=== PATIENT | male | born 1975 | race Caucasian/White ===

== ENCOUNTER 2020-08-09 02:29 | Emergency (ER) | payer OTHER ==
[~2020-08-09] VITALS: Ht 188 cm; Wt 94.3 kg
[2020-08-09] MEDS ORDERED: IMITREX100 MG PO (03:53)
[2020-08-09 04:12] VITALS: BP 125/87
== END 2020-08-09 04:17 | disposition home or self-care (01) ==
LOC: ER 02:29
DX: G43.909 Migraine, unspecified, not intractable, without status migrainosus (principal)

== ENCOUNTER → 2020-11-19 | Emergency (ER) | payer OTHER ==
[~2020-11-19] VITALS: Ht 185.4 cm; Wt 95.3 kg
[~2020-11-19] MED LIST: IMITREX100 MG PO
[2020-11-19 15:33] LABS: ABSOLUTE NEUTROPHILS 4.5 thou/uL (1.4-8.2); BASOPHILS 0.7 % (0.0-2.0); EOSINOPHILS 4.2 % (0.0-3.0); HEMATOCRIT 46.8 % (42.0-52.0); HEMOGLOBIN 15.6 gm/dL (14.0-18.0); LYMPHOCYTES 26.9 % (24.0-44.0); MCHC 33.4 g/dL (28.0-37.0); MCV 89.8 fL (80.0-100.0); MONOCYTES 9.6 % (1.0-8.0); PLATELET COUNT 288 thou/uL (150-400); POLYS 58.6 % (36.0-66.0); RBC 5.21 mil/uL (4.50-6.00); RDW 13.9 % (10.5-14.5); WBC 7.6 thou/uL (4.0-11.0)
[2020-11-19 15:40] LABS: CALCIUM 9.3 mg/dL (8.5-10.1); CREATININE 1.6 mg/dL (0.7-1.3); POTASSIUM 4.4 mmol/L (3.5-5.1)
[2020-11-19 18:13] VITALS: BP 127/82
--- NOTE | 2020-11-20 12:50 | EKG ---
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 : 1975 Requested By: Monie Landrum Order Number: [id number] MD: Rudy Barba Measurements Intervals [place] Rate: 147 P: NM: QRS: 31 QRSD: 131 T: 55 QT: 374 QTc: 586 Interpretive Statements Baseline artifact Sinus rhythm Artifact in lead(s) I,III,aVR,aVL,aVF,V1,V2,V3,V4,V5,V6 and baseline wander in lead(s) V2,V3,V4,V5,V6 No previous ECG available for comparison Electronically Signed On 11-20-2020 12:50:00 CDT by Rudy Barba [email or web address] <ELECTRONICALLY SIGNED> By: Rudy Barba MD, [facility] 11/20/20 1250 1532 153 Rudy Barba MD, [facility] /EPI
--- NOTE | 2020-11-20 12:51 | EKG ---
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
== END ==
LOC: ER 15:16
PROVIDERS: Emergency Medicine
DX: F41.9 Anxiety disorder, unspecified (principal); R79.89 Other specified abnormal findings of blood chemistry; R07.89 Other chest pain; I10 Essential (primary) hypertension; F17.210 Nicotine dependence, cigarettes, uncomplicated